=== PATIENT | male | born 1960 | race Hispanic/Latino ===

== ENCOUNTER 2023-02-08 14:30 | Emergency (ER) | payer OTHER ==
[~2023-02-08] VITALS: Ht 172.7 cm; Wt 65.8 kg
[2023-02-08] MEDS ORDERED: ACETAMINOPHEN 500 MG TABLET PO ONE (19:00)
[2023-02-08] MEDS ORDERED: TETANUS/DIPHTHERIA TOXOID [ADULT] 0.5 ML VIAL IM ONE (19:21)
[2023-02-08] MEDS ORDERED: DIPH,PERTUSS(ACELL),TET VAC/PF 0.5 ML VIAL IM ONE (19:30)
[2023-02-08 19:41] VITALS: BP 145/71
== END 2023-02-08 19:56 | disposition home or self-care (01) ==
LOC: EDH 14:30
DX: T23.001A Burn of unspecified degree of right hand, unspecified site, initial encounter (principal); K21.9 Gastro-esophageal reflux disease without esophagitis; Z88.0 Allergy status to penicillin; Z88.6 Allergy status to analgesic agent; X08.8XXA Exposure to other specified smoke, fire and flames, initial encounter; Y93.89 Activity, other specified; Y92.89 Other specified places as the place of occurrence of the external cause; Y99.8 Other external cause status
CPT/HCPCS: 90471; 90714